=== PATIENT | male | born 1985 | race African-American/Black ===

== ENCOUNTER 2019-04-04 09:52 | Emergency (ER) | payer SELFPAY ==
[2019-04-04] MEDS ORDERED: Sodium Chloride 0.9% 1,000 ML IV ONE (10:01)
[2019-04-04] MEDS ORDERED: LORazepam 2 MG/ML SDV IVPUSH ONE (10:02)
--- NOTE | 2019-04-04 10:14 | EDM.PDOC ---
ED HPI GENERAL MEDICAL PROBLEM - General Chief Complaint: Neuro Symptoms/Deficits Stated Complaint: seizure Time Seen by Provider: 04/04/19 09:59 Source of Information: Reports: Patient, EMS History Limitations: Reports: No Limitations - History of Present Illness INITIAL COMMENTS - FREE TEXT/NARRATIVE: HISTORY AND PHYSICAL: History of present illness: Patient is a 33-year-old male who presents to the ED today via EMS with concern of seizure-like activity that occurred just prior to arrival to the ED. Per EMS report, patient was at work and was in a bobcat when the coworkers had noticed that the bobcat was shaking. Coworkers went to go check on him and saw that he was having shaking-like activity and seizure-like activity. Per coworkers this lasted 2 to 3 minutes and patient was incontinent of urine on scene. Upon arrival to the ED, patient is alert and states that he does not remember what had happened. Patient states he has never had seizure activity before. Patient denies fever, chills, chest pain, shortness of breath, or cough. Denies headache, neck stiff ness, change in vision, syncope, or near syncope. Denies nausea, vomiting, abdominal pain, diarrhea, constipation, or dysuria. Has not noted any blood in urine or stool. Patient has been eating and drinking appropriately. Review of systems: As per history of present illness and below otherwise all systems reviewed and negative. Past medical history: As per history of present illness and as reviewed below otherwise noncontributory. Surgical history: As per history of present illness and as reviewed below otherwise noncontributory. Social history: See social history for further information Family history: As per history of present illness and as reviewed below otherwise noncontributory. Physical exam: General: Patient is alert, oriented, and in no acute distress. Patient laying comfortably on exam table. HEENT: Atraumatic, normocephalic, pupils equal and reactive bilaterally, negative for conjunctival pallor or scleral icterus, mucous membranes moist, TMs normal bilaterally, throat clear, neck supple, nontender, trachea midline. No drooling or trismus noted. No meningeal signs. No hot potato voice noted. Tongue intact without bite collado. Lungs: Clear to auscultation, breath sounds equal bilaterally, chest nontender. Heart: S1S2, regular rate and rhythm without overt murmur Abdomen: Soft, nondistended, nontender. Negative for masses or hepatosplenomegaly. Negative for costovertebral tenderness. Pelvis: Stable nontender. Genitourinary: Deferred. Rectal: Deferred. Skin: Intact, warm, dry. No lesions or rashes noted. Extremities: Atraumatic, negative for cords or calf pain. Neurovascular unremarkable. Neuro: Awake, alert, oriented. Cranial nerves II through XII unremarkable. Cerebellum unremarkable. Motor and sensory unremarkable throughout. Exam nonfocal. Notes: Dr. Bain verbally involved in patient care. Discussed importance for follow-up with both a primary care provider as well as neurology. Patient has been referred to the neurology clinic. Voices understanding and is agreeable to plan of care. Denies any further questions or concerns at this time. Diagnostics: Head CT, CBC, CMP, UA, EKG, chest x-ray, prolactin, Trop, lipase, Mg Therapeutics: NS, Ativan 2mg Prescription: None Impression: Seizure like activity Plan: 1. No driving or operating heavy machinery until follow up with primary care provider or neurology. 2. Follow-up with both your primary care provider and neurologist as discussed. The number has been provided above for you to call and establish an appointment time. 3. You can alternate ibuprofen and Tylenol as directed for pain and discomfort. 4. Return to the ED as needed and as discussed. Definitive disposition and diagnosis as appropriate pending reevaluation and review of above. - Related Data Allergies Allergy/AdvReac Type Severity Reaction Status Date / Time No Known Allergies Allergy Verified 04/04/19 09:59 Home Meds: Home Meds . [No Known Home Meds] 11/23/14 [History] Past Medical History Other Gastrointestinal History: Constipation, recent Flu Symptoms Other Genitourinary History: Pt states he has only 1 kidney - Past Surgical History Other Female Surgeries/Procedures: Right Nephrectomy for "Kidney Failure" Social & Family History - Family History Family Medical History: Noncontributory - Tobacco Use Smoking Status *Q: Unknown Ever Smoked - Recreational Drug Use Recreational Drug Use: No ED ROS GENERAL - Review of Systems Review Of Systems: Comprehensive ROS is negative, except as noted in HPI. ED EXAM, GENERAL - Physical Exam Exam: See Below (see dictation) Course - Vital Signs Last Recorded V/S: Last Vital Signs Temp 97.5 F 04/04/19 09:59 Pulse 100 04/04/19 09:59 Resp 16 04/04/19 09:59 BP 135/87 04/04/19 09:59 Pulse Ox 92 L 04/04/19 09:59 - Orders/Labs/Meds Orders: Active Orders 24 hr Category Date Time Status EKG Documentation Completion [RC] STAT Care 04/04/19 10:02 Active UA RFX MILTON AND CULT IF INDIC [URIN] Stat Lab 04/04/19 10:01 Ordered Labs: Laboratory Tests 04/04/19 04/04/19 04/04/19 Range/Units 10:10 10:10 10:10 WBC 5.13 (4.0-11.0) K/uL RBC 4.49 L (4.50-5.90) M/uL Hgb 13.7 (13.0-17.0) g/dL Hct 41.5 (38.0-50.0) % MCV 92.4 (80.0-98.0) fL MCH 30.5 (27.0-32.0) pg MCHC 33.0 (31.0-37.0) g/dL RDW Std Deviation 40.6 (28.0-62.0) fl RDW Coeff of Thomas 12 (11.0-15.0) % Plt Count 175 (150-400) K/uL MPV 11.70 (7.40-12.00) fL Neut % (Auto) 46.9 L (48.0-80.0) % Lymph % (Auto) 38.0 (16.0-40.0) % [place] % (Auto) 9.4 (0.0-15.0) % Eos % (Auto) 5.5 (0.0-7.0) % Baso % (Auto) 0.2 (0.0-1.5) % Neut # (Auto) 2.4 (1.4-5.7) K/uL Lymph # (Auto) 2.0 (0.6-2.4) K/uL [place] # (Auto) 0.5 (0.0-0.8) K/uL Eos # (Auto) 0.3 (0.0-0.7) K/uL Baso # (Auto) 0.0 (0.0-0.1) K/uL Nucleated RBC % 0.0 /100WBC Nucleated RBCs # 0 K/uL Sodium 138 (136-148) mmol/L Potassium 4.1 (3.5-5.1) mmol/L Chloride 102 (98-107) mmol/L Carbon Dioxide 23.2 (21.0-32.0) mmol/L BUN 18 (7.0-18.0) mg/dL Creatinine 1.4 H (0.8-1.3) mg/dL Est Cr Clr Drug Dosing 81.85 mL/min Estimated GFR (MDRD) > 60.0 ml/min Glucose 113 H (74-106) mg/dL Calcium 8.7 (8.5-10.1) mg/dL Magnesium 2.0 (1.8-2.4) mg/dL Total Bilirubin 0.6 (0.2-1.0) mg/dL AST 21 (15-37) IU/L ALT 37 (14-63) IU/L Alkaline Phosphatase 70 (46-116) U/L Troponin I < 0.050 (0.000-0.056) ng/mL Total Protein 7.5 (6.4-8.2) g/dL Albumin 3.8 (3.4-5.0) g/dL Globulin 3.7 (2.6-4.0) g/dL Albumin/Globulin Ratio 1.0 (0.9-1.6) Lipase 111 (73-393) U/L Prolactin 22.0 ng/mL Meds: Medications Discontinued Medications Generic Name Dose Route Start Last Admin Trade Name Freq PRN Reason Stop Dose Admin Sodium Chloride 1,000 mls @ 999 mls/hr 04/04/19 10:01 04/04/19 10:28 Normal Saline IV 04/04/19 11:01 999 mls/hr BOLUS ONE Administration Lorazepam 2 mg 04/04/19 10:02 04/04/19 10:29 Ativan IVPUSH 04/04/19 10:03 2 mg ONETIME ONE Administration Departure - Departure Time of Disposition: 12:15 Disposition: Home, Self-Care 01 Clinical Impression: Seizure-like activity - Discharge Information Referrals: PCP,None [Primary Care Provider] - Forms: ED Department Discharge Additional Instructions: The following information is given to patients seen in the emergency department who are being discharged to home. This information is to outline your options for follow-up care. We provide all patients seen in our emergency department with a follow-up referral. The need for follow-up, as well as the timing and circumstances, are variable depending upon the specifics of your emergency department visit. If you don't have a primary care physician on staff, we will provide you with a referral. We always advise you to contact your personal physician following an emergency department visit to inform them of the circumstance of the visit and for follow-up with them and/or the need for any referrals to a consulting specialist. The emergency department will also refer you to a specialist when appropriate. This referral assures that you have the opportunity for follow-up care with a specialist. All of these measure are taken in an effort to provide you with optimal care, which includes your follow-up. Under all circumstances we always encourage you to contact your private physician who remains a resource for coordinating your care. When calling for follow-up care, please make the office aware that this follow-up is from your recent emergency room visit. If for any reason you are refused follow-up, please contact the [facility] Emergency Department at and asked to speak to the emergency department charge nurse. [facility] [address] [place], [place] [id number] [address] [address] [facility] - Neurology Professional Building [address] [place] [address], [address] [place] [address] 1. No driving or operating heavy machinery until follow up with primary care provider or neurology. 2. Follow-up with both your primary care provider and neurologist as discussed. The number has been provided above for you to call and establish an appointment time. 3. You can alternate ibuprofen and Tylenol as directed for pain and discomfort. 4. Return to the ED as needed and as discussed. Sepsis Event Note - Evaluation Sepsis Screening Result: No Definite Risk - Focused Exam Vital Signs: Vital Signs Temp Pulse Resp BP Pulse Ox 04/04/19 09:59 97.5 F 100 16 135/87 92 L Date Exam was Performed: 04/04/19 Time Exam was Performed: 12:13 - My Orders Last 24 Hours: My Active Orders 04/04/19 10:01 UA RFX MILTON AND CULT IF INDIC [URIN] Stat 04/04/19 10:02 EKG Documentation Completion [RC] STAT - Assessment/Plan Last 24 Hours: My Active Orders 04/04/19 10:01 UA RFX MILTON AND CULT IF INDIC [URIN] Stat 04/04/19 10:02 EKG Documentation Completion [RC] STAT
--- NOTE | 2019-04-04 10:46 | CR ---
Chest: AP view of the chest was obtained. Comparison: No prior chest x-ray. Heart size and mediastinum are normal. Lungs are clear. Bony structures are unremarkable. Impression: 1. Nothing acute is appreciated on AP view of the chest x-ray. Diagnostic code #1 This report was dictated in [place] Standard Time
--- NOTE | 2019-04-04 10:52 | CT ---
Head CT Technique: Multiple axial sections through the brain were obtained. Intravenous contrast was not utilized. Comparison: Prior head CT study of 02/01/12 is available. Findings: Ventricles are dilated. These findings are stable from previous head CT exam. No worsening is appreciated. 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 This also appears stable. No abnormal parenchymal densities are seen. No evidence of intracranial hemorrhage. No midline shift or mass effect is seen. Bone window settings were reviewed which shows no acute calvarial abnormality. Mastoid sinuses show nothing acute. Visualized paranasal sinuses also show nothing acute. Impression: 1. Stable findings as described above. 2. Nothing acute is appreciated on noncontrast head CT exam. Diagnostic code #2 This report was dictated in [place] Standard Time
[2019-04-04 10:53] LABS: BLOOD UREA NITROGEN,BUN 18 mg/dL (7.0-18.0); CARBON DIOXIDE,CO2 23.2 mmol/L (21.0-32.0); CHLORIDE,CL 102 mmol/L (98-107); GLUCOSE RANDOM 113 mg/dL (74-106); LIPASE 111 U/L (73-393); POTASSIUM,K 4.1 mmol/L (3.5-5.1); SODIUM,NA 138 mmol/L (136-148)
[2019-04-04 13:45] VITALS: BP 133/81; PULSE 58
== END 2019-04-04 13:45 | disposition home or self-care (01) ==
LOC: MW.ED 09:52
DX: R25.9 Unspecified abnormal involuntary movements (principal)
CPT/HCPCS: 36415; 70450; 71045; 80053; 81003; 83690; 83735; 84146; 84484; 85025; 93005; 96361; 96374; 99285; J2060; J7030; 99284

== ENCOUNTER 2019-12-05 11:51 | Emergency (ER) | payer BC ==
[2019-12-05] MEDS ORDERED: Sodium Chloride 0.9% 2.5 ML Syringe FLUSH PRN (12:19)
[2019-12-05] MEDS ORDERED: Sodium Chloride 0.9% 10 ML Syringe FLUSH PRN (12:19)
[2019-12-05] MEDS ORDERED: LORazepam 2 MG/ML SDV ONE (12:35)
--- NOTE | 2019-12-05 12:44 | EDM.PDOC ---
ED HPI GENERAL MEDICAL PROBLEM - General Chief Complaint: Neuro Symptoms/Deficits Stated Complaint: seizure Time Seen by Provider: 12/05/19 12:06 Source of Information: Reports: Patient History Limitations: Reports: No Limitations - History of Present Illness INITIAL COMMENTS - FREE TEXT/NARRATIVE: 34-year-old male with history of seizure disorder presents with seizure episode today at work. He is supposedly compliant with his antiepileptics. Patient denies fever, chills, headache, chest pain, shortness of breath, abdominal pain, focal numbness or weakness. ROS: A 10-point review of systems, other than pertinent positives and negatives as stated per HPI, is otherwise negative Past medical history: No additional pertinent history Past Surgical history: No additional pertinent history Social history: No additional pertinent history Family history: No additional pertinent history PHYSICAL EXAM General: AOx4, GCS = 15, No distress HEENT: dry mucous membrane Neck: supple, no meningismus, no Kernig or Brudzinski Cardiac: S1S2 RRR Respiratory: CTAB, no crackles or rales, no wheezing Abdomen: Soft, nontender, no rebound or guarding, nondistended, no pulsatile mass. Back: nontender Musculoskeletal: NVI distally, no deformity Neuro: No focal deficits - Related Data Allergies Allergy/AdvReac Type Severity Reaction Status Date / Time No Known Allergies Allergy Verified 12/05/19 11:56 Home Meds: Home Meds . [No Known Home Meds] 11/23/14 [History] Past Medical History Other Gastrointestinal History: Constipation, recent Flu Symptoms Other Genitourinary History: Pt states he has only 1 kidney Neurological History: Reports: Seizure - Past Surgical History Male Surgical History: Reports: Nephrectomy Social & Family History - Family History Family Medical History: Noncontributory - Tobacco Use Smoking Status *Q: Never Smoker - Recreational Drug Use Recreational Drug Use: No ED ROS GENERAL - Review of Systems Review Of Systems: See Below (see dictation) - Physical Exam Exam: See Below Course - Vital Signs Last Recorded V/S: Last Vital Signs Temp 96.7 F L 12/05/19 11:52 Pulse 89 12/05/19 13:28 Resp 16 12/05/19 13:28 BP 112/48 L 12/05/19 13:28 Pulse Ox 98 12/05/19 13:28 - Orders/Labs/Meds Orders: Active Orders 24 hr Category Date Time Status Cardiac Monitoring [RC] . DIRECTED Care 12/05/19 12:19 Active Pulse Oximetry [RC] ASDIRECTED Care 12/05/19 12:19 Active DRUG SCREEN, URINE [URCHEM] Stat Lab 12/05/19 12:19 Ordered Sodium Chloride 0.9% [Saline Flush] Med 12/05/19 12:19 Active 10 ml FLUSH ASDIRECTED PRN Sodium Chloride 0.9% [Saline Flush] Med 12/05/19 12:19 Active 2.5 ml FLUSH ASDIRECTED PRN Saline Lock Insert [OM.PC] Stat Oth 12/05/19 12:19 Ordered Medication Orders Sodium Chloride (Saline Flush) 10 ml FLUSH ASDIRECTED PRN PRN Reason: Keep Vein Open Last Admin: 12/05/19 12:49 Dose: 10 ml Documented by: [id number] Sodium Chloride (Saline Flush) 2.5 ml FLUSH ASDIRECTED PRN PRN Reason: Keep Vein Open Last Admin: 12/05/19 12:50 Dose: 2.5 ml Documented by: [id number] Labs: Laboratory Tests 12/05/19 12/05/19 12/05/19 Range/Units 12:40 12:40 12:40 WBC 8.60 (4.0-11.0) K/uL RBC 4.51 (4.50-5.90) M/uL Hgb 13.5 (13.0-17.0) g/dL Hct 42.0 (38.0-50.0) % MCV 93.1 (80.0-98.0) fL MCH 29.9 (27.0-32.0) pg MCHC 32.1 (31.0-37.0) g/dL RDW Std Deviation 39.5 (28.0-62.0) fl RDW Coeff of Thomas 12 (11.0-15.0) % Plt Count 200 (150-400) K/uL MPV 11.40 (7.40-12.00) fL Neut % (Auto) 45.5 L (48.0-80.0) % Lymph % (Auto) 40.0 (16.0-40.0) % [place] % (Auto) 10.0 (0.0-15.0) % Eos % (Auto) 4.3 (0.0-7.0) % Baso % (Auto) 0.2 (0.0-1.5) % Neut # (Auto) 3.9 (1.4-5.7) K/uL Lymph # (Auto) 3.4 H (0.6-2.4) K/uL [place] # (Auto) 0.9 H (0.0-0.8) K/uL Eos # (Auto) 0.4 (0.0-0.7) K/uL Baso # (Auto) 0.0 (0.0-0.1) K/uL Nucleated RBC % 0.0 /100WBC Nucleated RBCs # 0 K/uL INR 1.09 Sodium 138 (136-148) mmol/L Potassium 3.0 L (3.5-5.1) mmol/L Chloride 99 (98-107) mmol/L Carbon Dioxide 20.0 L (21.0-32.0) mmol/L BUN 11 (7.0-18.0) mg/dL Creatinine 1.4 H (0.8-1.3) mg/dL Est Cr Clr Drug Dosing 81.60 mL/min Estimated GFR (MDRD) 58.0 ml/min Glucose 110 H (74-106) mg/dL Calcium 9.1 (8.5-10.1) mg/dL Phosphorus 3.5 (2.6-4.7) mg/dL Magnesium 1.8 (1.8-2.4) mg/dL Total Bilirubin 0.5 (0.2-1.0) mg/dL AST 25 (15-37) IU/L ALT 32 (14-63) IU/L Alkaline Phosphatase 81 (46-116) U/L C-Reactive Protein <0.20 (0.00-0.90) mg/dL Total Protein 8.0 (6.4-8.2) g/dL Albumin 4.2 (3.4-5.0) g/dL Globulin 3.8 (2.6-4.0) g/dL Albumin/Globulin Ratio 1.1 (0.9-1.6) Ethyl Alcohol < 3.0 mg/dL Meds: Medications Generic Name Dose Route Start Last Admin Trade Name Freq PRN Reason Stop Dose Admin Sodium Chloride 10 ml 12/05/19 12:19 12/05/19 12:49 Saline Flush FLUSH 10 ml ASDIRECTED PRN Administration Keep Vein Open Sodium Chloride 2.5 ml 12/05/19 12:19 12/05/19 12:50 Saline Flush FLUSH 2.5 ml ASDIRECTED PRN Administration Keep Vein Open Discontinued Medications Generic Name Dose Route Start Last Admin Trade Name Freq PRN Reason Stop Dose Admin Levetiracetam 3,000 mg/ 130 mls @ 460 mls/hr 12/05/19 12:39 12/05/19 13:28 Dextrose/Water IV 12/05/19 12:55 460 mls/hr Q12H STA Administration Lorazepam Confirm 12/05/19 12:35 12/05/19 12:49 Ativan Administered 12/05/19 12:36 Not Given Dose 2 mg .ROUTE .STK-MED ONE Lorazepam 2 mg 12/05/19 12:46 12/05/19 12:37 Ativan IVPUSH 12/05/19 12:47 2 mg ONETIME ONE Administration Potassium Chloride 40 meq 12/05/19 14:00 12/05/19 14:44 Klor-Con M20 PO 12/05/19 14:01 40 meq ONETIME ONE Administration - Re-Assessments/Exams Free Text/Narrative Re-Assessment/Exam: 12/05/19 12:42 Patient is actively seizing, abated with 2 mg IV Ativan. Will start IV Keppra 3 gm 12/05/19 14:57 Patient is alert and oriented now, no longer postictal. 12/05/19 15:20 After IV Keppra and prolonged observation in the ER, the patient improved and is currently stable for discharge. He has not had recurrent episodes of seizure. I performed a repeat exam and did not appreciate new abnormal findings. Patient exhibits normal vital signs and has a normal gait on road test. I advised the patient to return to the ER for reevaluation if symptoms worsened, including fever, worsening pain, or any other worrisome symptoms. I instructed the patient to follow up with neurology within 2-3 days. I instructed him to continue taking his seizure medication. MEDICAL DECISION MAKING: I reviewed the patients past medical records, lab and radiographic findings. I discussed the case with the patient. My differential diagnosis included: Electrolyte abnormality, hypoglycemia, seizure activity, subtherapeutic antiepileptic. Blood work did not demonstrate hyperglycemia or signs of infection, I do not suspect [employer] infectious etiology, including encephalitis or meningitis. Patient's potassium was 3.0, repleted with p.o. potassium. He was not tachycardic or tremulous, despite his alcohol level being undetectable, I do not suspect alcohol withdrawal seizure. Patient is compliant taking his at home seizure medications, he had one episode of transient seizure activity abated with 2 mg IV Ativan in the ER, he was given 3 g IV Keppra in the ER for loading. After observation, has not had recurrent seizures, no focal deficit on my repeat exam, normal gait on repeat exam. I suspect he is stable for outpatient follow-up with neurology for further medication adjustment. Departure - Departure Time of Disposition: 14:58 Disposition: Home, Self-Care 01 Condition: Good Clinical Impression: Seizure - Discharge Information *PRESCRIPTION DRUG MONITORING PROGRAM REVIEWED*: Not Applicable *COPY OF PRESCRIPTION DRUG MONITORING REPORT IN PATIENT SHAILESH: Not Applicable Instructions: Seizure, Adult, [id number] Referrals: PCP,None [Primary Care Provider] - Forms: ED Department Discharge Additional Instructions: The need for follow-up, as well as the timing and circumstances, are variable depending upon the specifics of your emergency department visit. If you don't have a primary care physician on staff, we will provide you with a referral. We always advise you to contact your personal physician following an emergency department visit to inform them of the circumstance of the visit and f or follow-up with them and/or the need for any referrals to a consulting specialist. The emergency department will also refer you to a specialist when appropriate. This referral assures that you have the opportunity for follow-up care with a specialist. All of these measure are taken in an effort to provide you with optimal care, which includes your follow-up. Under all circumstances we always encourage you to contact your private physician who remains a resource for coordinating your care. When calling for follow-up care, please make the office aware that this follow-up is from your recent emergency room visit. If for any reason you are refused follow-up, please contact the [facility] Emergency Department at and asked to speak to the emergency department charge nurse. If you do not have a primary care doctor, please follow up with the clinics below within 3-5 days. Neurology [facility] - Neurology Professional Building [address] [place] [address], [address] [place] [address] Sepsis Event Note (ED) - Evaluation Sepsis Screening Result: No Definite Risk - Focused Exam Vital Signs: Vital Signs Temp Pulse Resp BP Pulse Ox 12/05/19 13:28 89 16 112/48 L 98 12/05/19 12:47 117 H 16 122/55 L 98 12/05/19 11:52 96.7 F L 97 16 139/83 98 - My Orders Last 24 Hours: My Active Orders 12/05/19 12:19 Cardiac Monitoring [RC] . DIRECTED Pulse Oximetry [RC] ASDIRECTED DRUG SCREEN, URINE [URCHEM] Stat Sodium Chloride 0.9% [Saline Flush] 10 ml FLUSH ASDIRECTED PRN Sodium Chloride 0.9% [Saline Flush] 2.5 ml FLUSH ASDIRECTED PRN Saline Lock Insert [OM.PC] Stat - Assessment/Plan Last 24 Hours: My Active Orders 12/05/19 12:19 Cardiac Monitoring [RC] . DIRECTED Pulse Oximetry [RC] ASDIRECTED DRUG SCREEN, URINE [URCHEM] Stat Sodium Chloride 0.9% [Saline Flush] 10 ml FLUSH ASDIRECTED PRN Sodium Chloride 0.9% [Saline Flush] 2.5 ml FLUSH ASDIRECTED PRN Saline Lock Insert [OM.PC] Stat
[2019-12-05] MEDS ORDERED: LORazepam 2 MG/ML SDV IVPUSH ONE (12:46)
[2019-12-05 13:20] LABS: BLOOD UREA NITROGEN,BUN 11 mg/dL (7.0-18.0); CHLORIDE,CL 99 mmol/L (98-107); GLUCOSE RANDOM 110 mg/dL (74-106); SODIUM,NA 138 mmol/L (136-148)
[2019-12-05] MEDS ORDERED: Potassium Chloride 20 MEQ Tab.ER PO ONE (14:00)
[2019-12-05 15:24] VITALS: BP 138/77; PULSE 77
== END 2019-12-05 15:25 | disposition home or self-care (01) ==
LOC: MW.ED 11:51
DX: G40.909 Epilepsy, unspecified, not intractable, without status epilepticus (principal)
CPT/HCPCS: 36415; 80053; 80307; 83735; 84100; 85025; 85610; 86140; 96365; 96375; 99284; A9270; J1953; J2060; J7060; 99283

== ENCOUNTER 2020-02-29 09:43 | Emergency (ER) | payer BC ==
[2020-02-29] MEDS ORDERED: Sodium Chloride 0.9% 10 ML Syringe FLUSH PRN (09:56)
[2020-02-29] MEDS ORDERED: Sodium Chloride 0.9% 1,000 ML IV ONE (09:56)
[2020-02-29] MEDS ORDERED: Sodium Chloride 0.9% 2.5 ML Syringe FLUSH PRN (09:56)
--- NOTE | 2020-02-29 10:00 | EDM.PDOC ---
ED HPI GENERAL MEDICAL PROBLEM - General Chief Complaint: Neurological Problem Stated Complaint: EMS ARRIVAL Time Seen by Provider: 02/29/20 09:50 Source of Information: Reports: Patient History Limitations: Reports: No Limitations - History of Present Illness INITIAL COMMENTS - FREE TEXT/NARRATIVE: Is a 34-year-old male with a history of seizures who presents today for seizures about 2 hours ago. Patient is unsure how long the seizure lasted but states he only had 1 today. Patient states last time he had a seizure was about 3 months ago. Patient states he ran of his medication has not had any of his pills in the past week. Patient denies any head injuries or other injuries from the seizure. Patient denies any fever chills nausea vomiting drug or alcohol use. - Related Data Allergies Allergy/AdvReac Type Severity Reaction Status Date / Time No Known Allergies Allergy Verified 12/05/19 11:56 Home Meds: Home Meds levETIRAcetam [Keppra] 750 mg PO BID #60 tablet 02/29/20 [Rx] Past Medical History Other Gastrointestinal History: Constipation, recent Flu Symptoms Other Genitourinary History: Pt states he has only 1 kidney Neurological History: Reports: Seizure - Past Surgical History Male Surgical History: Reports: Nephrectomy Social & Family History - Family History Family Medical History: No Pertinent Family History ED ROS GENERAL - Review of Systems Review Of Systems: See Below Constitutional: Reports: No Symptoms HEENT: Reports: No Symptoms Respiratory: Reports: No Symptoms Cardiovascular: Reports: No Symptoms Endocrine: Reports: No Symptoms GI/Abdominal: Reports: No Symptoms : Reports: No Symptoms Musculoskeletal: Reports: No Symptoms Skin: Reports: No Symptoms Neurological: Reports: Seizure Psychiatric: Reports: No Symptoms Hematologic/Lymphatic: Reports: No Symptoms Immunologic: Reports: No Symptoms ED EXAM, NEURO - Physical Exam Exam: See Below Exam Limited By: No Limitations General Appearance: Alert, WD/WN, No Apparent Distress Eye Exam: Bilateral Eye: EOMI, PERRL Ears: Normal External Exam Head Exam: Atraumatic Neck: Normal Inspection, Supple, Non-Tender Respiratory/Chest: No Respiratory Distress, Lungs Clear, Normal Breath Sounds Cardiovascular: Normal Peripheral Pulses, Regular Rate, Rhythm GI/Abdominal: Normal Bowel Sounds, Soft, Non-Tender Neurological: Alert, Normal Mood/Affect, CN II-XII Intact, Normal Gait, Oriented x 3 Extremities: Normal Range of Motion #1 Interpretation EKG Date: 02/29/20 Time: 09:45 Rhythm: NSR Rate (Beats/Min): 95 ST-T: Normal Course - Vital Signs Last Recorded V/S: Last Vital Signs Temp 98.2 F 02/29/20 09:50 Pulse 87 02/29/20 10:30 Resp 16 02/29/20 10:30 BP 124/73 02/29/20 10:30 Pulse Ox 100 02/29/20 10:30 - Orders/Labs/Meds Orders: Active Orders 24 hr Category Date Time Status LACTIC ACID,WHOLE BLOOD [BG] Stat Lab 02/29/20 12:01 Ordered Sodium Chloride 0.9% [Saline Flush] Med 02/29/20 09:56 Active 10 ml FLUSH ASDIRECTED PRN Sodium Chloride 0.9% [Saline Flush] Med 02/29/20 09:56 Active 2.5 ml FLUSH ASDIRECTED PRN Saline Lock Insert [OM.PC] Stat Oth 02/29/20 09:56 Ordered Medication Orders Sodium Chloride (Saline Flush) 10 ml FLUSH ASDIRECTED PRN PRN Reason: Keep Vein Open Last Admin: 02/29/20 10:11 Dose: 10 ml Documented by: LISA Sodium Chloride (Saline Flush) 2.5 ml FLUSH ASDIRECTED PRN PRN Reason: Keep Vein Open Last Admin: 02/29/20 10:11 Dose: 2.5 ml Documented by: LISA Labs: Laboratory Tests 02/29/20 02/29/20 02/29/20 Range/Units 09:45 09:45 09:45 WBC 4.94 (4.0-11.0) K/uL RBC 4.45 L (4.50-5.90) M/uL Hgb 13.2 (13.0-17.0) g/dL Hct 41.3 (38.0-50.0) % MCV 92.8 (80.0-98.0) fL MCH 29.7 (27.0-32.0) pg MCHC 32.0 (31.0-37.0) g/dL RDW Std Deviation 39.8 (28.0-62.0) fl RDW Coeff of Thomas 12 (11.0-15.0) % Plt Count 198 (150-400) K/uL MPV 11.60 (7.40-12.00) fL Neut % (Auto) 40.6 L (48.0-80.0) % Lymph % (Auto) 44.3 H (16.0-40.0) % Power % (Auto) 11.1 (0.0-15.0) % Eos % (Auto) 3.6 (0.0-7.0) % Baso % (Auto) 0.4 (0.0-1.5) % Neut # (Auto) 2.0 (1.4-5.7) K/uL Lymph # (Auto) 2.2 (0.6-2.4) K/uL Power # (Auto) 0.6 (0.0-0.8) K/uL Eos # (Auto) 0.2 (0.0-0.7) K/uL Baso # (Auto) 0.0 (0.0-0.1) K/uL Nucleated RBC % 0.0 /100WBC Nucleated RBCs # 0 K/uL Lactate 4.8 H* (0.20-2.00) mmol/L Sodium 137 (136-148) mmol/L Potassium 4.0 (3.5-5.1) mmol/L Chloride 100 (98-107) mmol/L Carbon Dioxide 24.3 (21.0-32.0) mmol/L BUN 17 (7.0-18.0) mg/dL Creatinine 1.5 H (0.8-1.3) mg/dL Est Cr Clr Drug Dosing TNP Estimated GFR (MDRD) 53.6 ml/min Glucose 102 (74-106) mg/dL Calcium 8.9 (8.5-10.1) mg/dL Phosphorus 3.4 (2.6-4.7) mg/dL Magnesium 1.8 (1.8-2.4) mg/dL Total Bilirubin 0.6 (0.2-1.0) mg/dL AST 27 (15-37) IU/L ALT 36 (14-63) IU/L Alkaline Phosphatase 69 (46-116) U/L Total Protein 7.6 (6.4-8.2) g/dL Albumin 3.8 (3.4-5.0) g/dL Globulin 3.8 (2.6-4.0) g/dL Albumin/Globulin Ratio 1.0 (0.9-1.6) Urine Color Urine Appearance Urine pH (5.0-8.0) Ur Specific [place] (1.001-1.035) Urine Protein (NEGATIVE) mg/dL Urine Glucose (UA) (NEGATIVE) mg/dL Urine Ketones (NEGATIVE) mg/dL Urine Occult Blood (NEGATIVE) Urine Nitrite (NEGATIVE) Urine Bilirubin (NEGATIVE) Urine Urobilinogen (<2.0) EU/dL Ur Leukocyte Esterase (NEGATIVE) Urine Opiates Screen (NEGATIVE) Ur Oxycodone Screen (NEGATIVE) Urine Methadone Screen (NEGATIVE) Ur Barbiturates Screen (NEGATIVE) Ur Phencyclidine Scrn (NEGATIVE) Ur Amphetamine Screen (NEGATIVE) U Methamphetamines Scrn (NEGATIVE) U Benzodiazepines Scrn (NEGATIVE) U Cocaine Metab Screen (NEGATIVE) U Marijuana (THC) Screen (NEGATIVE) Ethyl Alcohol < 3.0 mg/dL 02/29/20 02/29/20 Range/Units 10:04 10:04 WBC (4.0-11.0) K/uL RBC (4.50-5.90) M/uL Hgb (13.0-17.0) g/dL Hct (38.0-50.0) % MCV (80.0-98.0) fL MCH (27.0-32.0) pg MCHC (31.0-37.0) g/dL RDW Std Deviation (28.0-62.0) fl RDW Coeff of Thomas (11.0-15.0) % Plt Count (150-400) K/uL MPV (7.40-12.00) fL Neut % (Auto) (48.0-80.0) % Lymph % (Auto) (16.0-40.0) % Power % (Auto) (0.0-15.0) % Eos % (Auto) (0.0-7.0) % Baso % (Auto) (0.0-1.5) % Neut # (Auto) (1.4-5.7) K/uL Lymph # (Auto) (0.6-2.4) K/uL Power # (Auto) (0.0-0.8) K/uL Eos # (Auto) (0.0-0.7) K/uL Baso # (Auto) (0.0-0.1) K/uL Nucleated RBC % /100WBC Nucleated RBCs # K/uL Lactate (0.20-2.00) mmol/L Sodium (136-148) mmol/L Potassium (3.5-5.1) mmol/L Chloride (98-107) mmol/L Carbon Dioxide (21.0-32.0) mmol/L BUN (7.0-18.0) mg/dL Creatinine (0.8-1.3) mg/dL Est Cr Clr Drug Dosing Estimated GFR (MDRD) ml/min Glucose (74-106) mg/dL Calcium (8.5-10.1) mg/dL Phosphorus (2.6-4.7) mg/dL Magnesium (1.8-2.4) mg/dL Total Bilirubin (0.2-1.0) mg/dL AST (15-37) IU/L ALT (14-63) IU/L Alkaline Phosphatase (46-116) U/L Total Protein (6.4-8.2) g/dL Albumin (3.4-5.0) g/dL Globulin (2.6-4.0) g/dL Albumin/Globulin Ratio (0.9-1.6) Urine Color YELLOW Urine Appearance CLEAR Urine pH 6.0 (5.0-8.0) Ur Specific [place] 1.010 (1.001-1.035) Urine Protein NEGATIVE (NEGATIVE) mg/dL Urine Glucose (UA) NEGATIVE (NEGATIVE) mg/dL Urine Ketones NEGATIVE (NEGATIVE) mg/dL Urine Occult Blood NEGATIVE (NEGATIVE) Urine Nitrite NEGATIVE (NEGATIVE) Urine Bilirubin NEGATIVE (NEGATIVE) Urine Urobilinogen 0.2 (<2.0) EU/dL Ur Leukocyte Esterase NEGATIVE (NEGATIVE) Urine Opiates Screen NEGATIVE (NEGATIVE) Ur Oxycodone Screen NEGATIVE (NEGATIVE) Urine Methadone Screen NEGATIVE (NEGATIVE) Ur Barbiturates Screen NEGATIVE (NEGATIVE) Ur Phencyclidine Scrn NEGATIVE (NEGATIVE) Ur Amphetamine Screen NEGATIVE (NEGATIVE) U Methamphetamines Scrn NEGATIVE (NEGATIVE) U Benzodiazepines Scrn NEGATIVE (NEGATIVE) U Cocaine Metab Screen NEGATIVE (NEGATIVE) U Marijuana (THC) Screen NEGATIVE (NEGATIVE) Ethyl Alcohol mg/dL Meds: Medications Generic Name Dose Route Start Last Admin Trade Name Freq PRN Reason Stop Dose Admin Sodium Chloride 10 ml 02/29/20 09:56 02/29/20 10:11 Saline Flush FLUSH 10 ml ASDIRECTED PRN Administration Keep Vein Open Sodium Chloride 2.5 ml 02/29/20 09:56 02/29/20 10:11 Saline Flush FLUSH 2.5 ml ASDIRECTED PRN Administration Keep Vein Open Discontinued Medications Generic Name Dose Route Start Last Admin Trade Name Luis PRN Reason Stop Dose Admin Acetaminophen 1,000 mg 02/29/20 10:55 02/29/20 11:00 Tylenol Extra Strength PO 02/29/20 10:56 1,000 mg ONETIME ONE Administration Sodium Chloride 1,000 mls @ 999 mls/hr 02/29/20 09:56 02/29/20 10:11 Normal Saline IV 02/29/20 10:56 999 mls/hr .BOLUS ONE Administration Levetiracetam 1,500 mg 02/29/20 11:15 02/29/20 11:35 Keppra PO 02/29/20 11:16 1,500 mg NOW ONE Administration - Re-Assessments/Exams Free Text/Narrative Re-Assessment/Exam: 02/29/20 12:10 Patient medication list was faxed over from pharmacy shows that he takes Keppra 750 mg twice daily. It also showed the patient picked up the prescription on February 20 have patient states not sure he does not have any medications at home. We will still prescribe patient a months worth of his Keppra and he can see his neurologist. Patient breakthrough seizure likely due to noncompliance of medication. Patient did have elevated lactate likely due to the seizure earlier was given a liter of fluids recheck. Patient stable for discharge home. Departure - Departure Time of Disposition: 12:10 Disposition: Home, Self-Care 01 Condition: Good Clinical Impression: Breakthrough seizure - Discharge Information *PRESCRIPTION DRUG MONITORING PROGRAM REVIEWED*: Not Applicable *COPY OF PRESCRIPTION DRUG MONITORING REPORT IN PATIENT SHAILESH: Not Applicable Prescriptions: levETIRAcetam [Keppra] 750 mg PO BID #60 tablet Referrals: PCP,None [Primary Care Provider] - Forms: ED Department Discharge Additional Instructions: The following information is given to patients seen in the emergency department who are being discharged to home. This information is to outline your options for follow-up care. We provide all patients seen in our emergency department with a follow-up referral. The need for follow-up, as well as the timing and circumstances, are variable depending upon the specifics of your emergency department visit. If you don't have a primary care physician on staff, we will provide you with a referral. We always advise you to contact your personal physician following an emergency department visit to inform them of the circumstance of the visit and for follow-up with them and/or the need for any referrals to a consulting specialist. The emergency department will also refer you to a specialist when appropriate. This referral assures that you have the opportunity for follow-up care with a specialist. All of these measure are taken in an effort to provide you with optimal care, which includes your follow-up. Under all circumstances we always encourage you to contact your private physician who remains a resource for coordinating your care. When calling for follow-up care, please make the office aware that this follow-up is from your recent emergency room visit. If for any reason you are refused follow-up, please contact the [facility] Emergency Department at and asked to speak to the emergency department charge nurse. Please follow up with your primary care physician. If you do not have a primary care physician, see below: [facility] [address] [place] [id number] My [facility] [address] [place] [phone] Please follow-up with neurologist for further care. If you continue to have seizures or other symptoms please return to the emergency department. Sepsis Event Note (ED) - Focused Exam Vital Signs: Vital Signs Temp Pulse Resp BP Pulse Ox 02/29/20 10:30 87 16 124/73 100 02/29/20 10:00 88 16 116/69 98 02/29/20 09:50 98.2 F 96 17 122/72 96 - My Orders Last 24 Hours: My Active Orders 02/29/20 09:56 Sodium Chloride 0.9% [Saline Flush] 10 ml FLUSH ASDIRECTED PRN Sodium Chloride 0.9% [Saline Flush] 2.5 ml FLUSH ASDIRECTED PRN Saline Lock Insert [OM.PC] Stat 02/29/20 12:01 LACTIC ACID,WHOLE BLOOD [BG] Stat - Assessment/Plan Last 24 Hours: My Active Orders 02/29/20 09:56 Sodium Chloride 0.9% [Saline Flush] 10 ml FLUSH ASDIRECTED PRN Sodium Chloride 0.9% [Saline Flush] 2.5 ml FLUSH ASDIRECTED PRN Saline Lock Insert [OM.PC] Stat 02/29/20 12:01 LACTIC ACID,WHOLE BLOOD [BG] Stat Assessment:: Patient is a 34-year-old male who presents today for seizure. Patient has not had his medication in the past week. Likely source of seizures noncompliant with medication. Will rule any infections and reassess. Patient is unsure of his medication list will call pharmacy to get complete list of meds.
[2020-02-29 10:37] LABS: BLOOD UREA NITROGEN,BUN 17 mg/dL (7.0-18.0); CARBON DIOXIDE,CO2 24.3 mmol/L (21.0-32.0); CHLORIDE,CL 100 mmol/L (98-107); GLUCOSE RANDOM 102 mg/dL (74-106); SODIUM,NA 137 mmol/L (136-148)
[2020-02-29] MEDS ORDERED: Acetaminophen 500 MG Tab PO ONE (10:55)
[2020-02-29] MEDS ORDERED: levETIRAcetam Soln 500 MG/5 ML Cup PO ONE (11:15)
[2020-02-29 12:58] VITALS: BP 121/71; PULSE 69
== END 2020-02-29 12:48 | disposition home or self-care (01) ==
LOC: MW.ED 09:43
DX: R56.9 Unspecified convulsions (principal); Z79.899 Other long term (current) drug therapy
CPT/HCPCS: 36415; 80053; 80305; 80307; 81003; 83605; 83735; 84100; 85025; 93005; 99285; A9270; J7030

== ENCOUNTER 2020-05-29 20:50 | Emergency (ER) | payer BC ==
[2020-05-29] MEDS ORDERED: Sodium Chloride 0.9% 2.5 ML Syringe FLUSH PRN (21:01)
[2020-05-29] MEDS ORDERED: Sodium Chloride 0.9% 10 ML Syringe FLUSH PRN (21:01)
[2020-05-29] MEDS ORDERED: Acetaminophen 325 MG Tab PO ONE (21:27)
--- NOTE | 2020-05-29 21:27 | EDM.PDOC ---
ED HPI GENERAL MEDICAL PROBLEM - General Chief Complaint: Neuro Symptoms/Deficits Stated Complaint: SEIZURE Time Seen by Provider: 05/29/20 21:00 - History of Present Illness INITIAL COMMENTS - FREE TEXT/NARRATIVE: HISTORY AND PHYSICAL: History of present illness: This is a 34-year-old gentleman with a history significant for seizures in the past who presents ER today secondary to witnessed seizure by his prior to arrival. Patient reports that he for started having seizures in 2012. Patient reports that he was seizure-free until 2019 when he has had 3 seizures a year. Patient reports that he is currently being followed by a neurologist for seizures and is supposed to be on Keppra 500 mg twice a day. Patient reports that he is not taking his medication for quite some time until Thursday, 2 days ago, when he took Keppra 500 mg in the morning in the evening. Patient reports on Thursday he did not have any more medication left but had an appointment to see his neurologist. Patient reports that he went to see his neurologist yesterday and obtain refills for his medication. Patient went to the pharmacy and picked up his Keppra prescription but did not take any of his Keppra on Thursday or today. Patient reports that today he was feeling fine in his usual state of health. Patient denies any recent fevers, shakes, chills, nausea, vomiting, diarrhea, dysuria, frequency, urgency, chest pain, shortness of breath. Patient denies any aura or preictal symptoms. Patient denies any loss of bowel or bladder function. Patient currently complains of a headache but denies any sensation of a head injury or trauma or swelling to his scalp. Patient denies any other pain or discomfort to his upper or lower extremities, chest, torso, back, head, neck. Patient denies any tobacco, alcohol, drugs. Patient reports that he has had a nephrectomy in the past but is unclear why he had it. Patient denies any history of cancer. In reviewing his old records, the patient appears to have an MRI back in 2019 which was unremarkable. Review of systems: As per history of present illness and below otherwise all systems reviewed and negative. Past medical history: As per history of present illness and as reviewed below otherwise noncontributory. Surgical history: As per history of present illness and as reviewed below otherwise noncontributory. Social history: No reported history of drug or alcohol abuse. Family history: As per history of present illness and as reviewed below otherwise noncontributory. Physical exam: This patient was seen and evaluated during the 2019 SARS-CoV-2 novel coronavirus pandemic period. Community viral transmission is ongoing at time of this encounter and the emergency department is operating under pandemic response procedures. Constitutional: Patient is oriented to person, place, and time. Appears well- developed and well-nourished. No distress. HEENT: Moist mucous membranes Head: Normocephalic and atraumatic Eyes: Right eye exhibits no discharge. Left eye exhibits no discharge. No scleral icterus Neck: Normal range of motion. No tracheal deviation present. Cardiovascular: Normal rate and regular rhythm. Pulmonary: Effort normal, no respiratory distress. Abdominal: No distention Musculoskeletal: Normal range of motion Neurologic: Alert and oriented to person, place and time. Skin: [place], warm and dry. Psychiatric: Normal mood and affect. Behavior is normal. Judgment and thought content normal. Nursing note and vital signs have been reviewed Patient has no C-spine T-spine or L-spine tenderness to palpation. Patient has no left upper or right upper quadrant tenderness to palpation. Patient has no crepitus to palpation to the anterior chest wall. Patient is neurologically intact. Patient does not present with any signs or or symptoms that would be consistent with acute intracranial, intra-abdominal, intrathoracic, or long bone injury. All long bones have been palpated and range of motion been performed and there is no evidence of any acute pathology. Neuro: A&Ox3. Cranial nerves II-XII grossly intact, 5/5 strength to bilateral upper and lower extremities, sensation intact to bilateral upper and lower extremities, no nystagmus, PERRLA, EOMI, normal speech, proprioception intact to bilateral lower extremities, normal finger to nose test, gait normal Diagnostics: CBC, CMP Therapeutics: NSS x1 L, Keppra 1 g IV. Tylenol 1 g p.o. Assessment and plan: This is a 34-year-old gentleman who presents ER today secondary to a seizure. Patient has a history of seizure disorder in the past and has been noncompliant with his Keppra. Patient did see his neurologist yesterday for scheduled appointment and got his medications refilled. Patient presents the ER today with a bottle that was filled on May 16 (although the patient reports that he picked it up yesterday from the pharmacy) which still has 60 out of 60 pills remaining. Patient reports that the 2 pills that he took on Thursday where the last 2 pills from a prior prescription. Patient is unclear why he did not take any of his medications yesterday or today after having seen the neurologist and having had his prescription picked up. Patient will be monitored here in the ED. We will check a CBC and a CMP. We will give the patient 1 g of IV Keppra to help bolus him. Patient be given Tylenol to assist with his headache. 10:11 PM: Patient was monitored in the ER and is remained stable. Patient has been given 1 g of IV Keppra. Patient's labs are all within normal limits. Patient is stable for discharge at this time. Patient does have his at home who can monitor him. Patient will be instructed as to the importance of taking his Keppra as instructed and to follow-up with his neurologist for reevaluation as needed. Reassessment at the time of disposition demonstrates that the patient is in no acute distress. The patient has remained stable throughout the entire ED visit and is without objective evidence for acute process requiring urgent intervention or hospitalization. The patient is stable for discharge, counseling is provided as documented above, discussed symptomatic treatment and specific conditions for return. I have spoken with the patient/caregiver and discussed todays findings, in addition to providing specific details for the plan of care. Questions are answered and there is agreement with the plan. Definitive disposition and diagnosis as appropriate pending reevaluation and review of above. headache Pain Score (Numeric/FACES): 8 - Related Data Allergies Allergy/AdvReac Type Severity Reaction Status Date / Time No Known Allergies Allergy Verified 05/29/20 20:51 Home Meds: Home Meds Cholecalciferol (Vitamin D3) [Vitamin D3] 50,000 unit PO WEEKLY 02/29/20 [History] levETIRAcetam [Keppra] 750 mg PO BID #60 tablet 02/29/20 [Rx] Past Medical History Gastrointestinal History: Reports: Chronic Constipation Other Gastrointestinal History: Constipation, recent Flu Symptoms Other Genitourinary History: Pt states he has only 1 kidney (right kidney removed) Neurological History: Reports: Seizure, Other (See Below) Other Neuro History: last sx episode 2 months ago - Infectious Disease History Infectious Disease History: Reports: None - Past Surgical History GI Surgical History: Reports: None Male Surgical History: Reports: Nephrectomy Neurological Surgical History: Reports: None Social & Family History - Family History Family Medical History: No Pertinent Family History - Tobacco Use Tobacco Use Status *Q: Never Tobacco User - Caffeine Use Caffeine Use: Reports: None - Recreational Drug Use Recreational Drug Use: No ED ROS GENERAL - Review of Systems Review Of Systems: See Below ED EXAM, GENERAL - Physical Exam Exam: See Below Course - Vital Signs Last Recorded V/S: Last Vital Signs Temp 97.9 F 05/29/20 20:51 Pulse 92 05/29/20 20:51 Resp 20 05/29/20 20:51 BP 129/76 05/29/20 20:51 Pulse Ox 97 05/29/20 20:51 - Orders/Labs/Meds Orders: Active Orders 24 hr Category Date Time Status Sodium Chloride 0.9% [Saline Flush] Med 05/29/20 21:01 Active 10 ml FLUSH ASDIRECTED PRN Sodium Chloride 0.9% [Saline Flush] Med 05/29/20 21:01 Active 2.5 ml FLUSH ASDIRECTED PRN Saline Lock Insert [OM.PC] Stat Oth 05/29/20 21:01 Ordered Medication Orders Sodium Chloride (Sodium Chloride 0.9% 10 Ml Syringe) 10 ml FLUSH ASDIRECTED PRN PRN Reason: Keep Vein Open Last Admin: 05/29/20 21:10 Dose: 10 ml Documented by: LISA Sodium Chloride (Sodium Chloride 0.9% 2.5 Ml Syringe) 2.5 ml FLUSH ASDIRECTED PRN PRN Reason: Keep Vein Open Last Admin: 05/29/20 21:10 Dose: 2.5 ml Documented by: LISA Labs: Laboratory Tests 05/29/20 05/29/20 Range/Units 20:52 20:52 WBC 6.05 (4.0-11.0) K/uL RBC 4.36 L (4.50-5.90) M/uL Hgb 13.5 (13.0-17.0) g/dL Hct 39.6 (38.0-50.0) % MCV 90.8 (80.0-98.0) fL MCH 31.0 (27.0-32.0) pg MCHC 34.1 (31.0-37.0) g/dL RDW Std Deviation 38.9 (28.0-62.0) fl RDW Coeff of Thomas 12 (11.0-15.0) % Plt Count 180 (150-400) K/uL MPV 11.60 (7.40-12.00) fL Neut % (Auto) 41.9 L (48.0-80.0) % Lymph % (Auto) 44.1 H (16.0-40.0) % [place] % (Auto) 8.8 (0.0-15.0) % Eos % (Auto) 5.0 (0.0-7.0) % Baso % (Auto) 0.2 (0.0-1.5) % Neut # (Auto) 2.5 (1.4-5.7) K/uL Lymph # (Auto) 2.7 H (0.6-2.4) K/uL [place] # (Auto) 0.5 (0.0-0.8) K/uL Eos # (Auto) 0.3 (0.0-0.7) K/uL Baso # (Auto) 0.0 (0.0-0.1) K/uL Nucleated RBC % 0.0 /100WBC Nucleated RBCs # 0 K/uL Sodium 136 (136-148) mmol/L Potassium 3.7 (3.5-5.1) mmol/L Chloride 99 (98-107) mmol/L Carbon Dioxide 24.1 (21.0-32.0) mmol/L BUN 16 (7.0-18.0) mg/dL Creatinine 1.6 H (0.8-1.3) mg/dL Est Cr Clr Drug Dosing 69.29 mL/min Estimated GFR (MDRD) 49.7 ml/min Glucose 111 H (74-106) mg/dL Calcium 8.7 (8.5-10.1) mg/dL Total Bilirubin 0.4 (0.2-1.0) mg/dL AST 26 (15-37) IU/L ALT 41 (14-63) IU/L Alkaline Phosphatase 71 (46-116) U/L Total Protein 7.7 (6.4-8.2) g/dL Albumin 3.8 (3.4-5.0) g/dL Globulin 3.9 (2.6-4.0) g/dL Albumin/Globulin Ratio 1.0 (0.9-1.6) Meds: Medications Generic Name Dose Route Start Last Admin Trade Name Freq PRN Reason Stop Dose Admin Sodium Chloride 10 ml 05/29/20 21:01 05/29/20 21:10 Sodium Chloride 0.9% 10 Ml Syringe FLUSH 10 ml ASDIRECTED PRN Administration Keep Vein Open Sodium Chloride 2.5 ml 05/29/20 21:01 05/29/20 21:10 Sodium Chloride 0.9% 2.5 Ml Syringe FLUSH 2.5 ml ASDIRECTED PRN Administration Keep Vein Open Discontinued Medications Generic Name Dose Route Start Last Admin Trade Name Freq PRN Reason Stop Dose Admin Acetaminophen 650 mg 05/29/20 21:27 Acetaminophen 325 Mg Tab PO 05/29/20 21:28 NOW ONE Levetiracetam 1,000 mg/ 110 mls @ 440 mls/hr 05/29/20 21:23 Dextrose/Water IV 05/29/20 21:37 Q12H STA Departure - Departure Time of Disposition: 22:12 Disposition: Home, Self-Care 01 Condition: Good Clinical Impression: Seizure - Discharge Information Instructions: Seizure, Adult Forms: ED Department Discharge Additional Instructions: Your seen and evaluated in the ER today secondary to having a seizure earlier. It is extremely important that you are compliant with taking her Keppra twice a day as instructed. Please make an appointment to see your neurologist in the next 1 to 2 days for reevaluation and reassessment of your medications. Please go home and get plenty of rest. Avoid any excessive exertion, stress, computer use, watching TV. The following information is given to patients seen in the emergency department who are being discharged to home. This information is to outline your options for follow-up care. We provide all patients seen in our emergency department with a follow-up referral. The need for follow-up, as well as the timing and circumstances, are variable depending upon the specifics of your emergency department visit. If you don't have a primary care physician on staff, we will provide you with a referral. We always advise you to contact your personal physician following an emergency department visit to inform them of the circumstance of the visit and for follow-up with them and/or the need for any referrals to a consulting specialist. The emergency department will also refer you to a specialist when appropriate. This referral assures that you have the opportunity for follow-up care with a specialist. All of these measure are taken in an effort to provide you with optimal care, which includes your follow-up. Under all circumstances we always encourage you to contact your private physician who remains a resource for coordinating your care. When calling for follow-up care, please make the office aware that this follow-up is from your recent emergency room visit. If for any reason you are refused follow-up, please contact the [facility] Emergency Department at and asked to speak to the emergency department charge nurse. [facility] [address] [place] [id number] [facility] [address] [place] [id number] Sepsis Event Note (ED) - Evaluation Sepsis Screening Result: No Definite Risk - Focused Exam Vital Signs: Vital Signs Temp Pulse Resp BP Pulse Ox 05/29/20 20:51 97.9 F 92 20 129/76 97 - My Orders Last 24 Hours: My Active Orders 05/29/20 21:01 Sodium Chloride 0.9% [Saline Flush] 10 ml FLUSH ASDIRECTED PRN Sodium Chloride 0.9% [Saline Flush] 2.5 ml FLUSH ASDIRECTED PRN Saline Lock Insert [OM.PC] Stat - Assessment/Plan Last 24 Hours: My Active Orders 05/29/20 21:01 Sodium Chloride 0.9% [Saline Flush] 10 ml FLUSH ASDIRECTED PRN Sodium Chloride 0.9% [Saline Flush] 2.5 ml FLUSH ASDIRECTED PRN Saline Lock Insert [OM.PC] Stat
[2020-05-29 21:36] LABS: CARBON DIOXIDE,CO2 24.1 mmol/L (21.0-32.0); POTASSIUM,K 3.7 mmol/L (3.5-5.1)
[2020-05-29 23:15] VITALS: BP 132/73; PULSE 95
== END 2020-05-29 22:28 | disposition home or self-care (01) ==
LOC: MW.ED 20:50
DX: R56.9 Unspecified convulsions (principal)
CPT/HCPCS: 36415; 80053; 85025; 96374; 99284; A9270; J1953; 99283

== ENCOUNTER 2021-01-26 06:32 | Emergency (ER) | payer BC ==
--- NOTE | 2021-01-26 06:48 | PCM.EKG ---
#1 Interpretation EKG Date: 01/26/21 Time: 06:37 EKG Interpretation Comments: EKG: As interpreted by ER physician: Taylor: Nonspecific ST-T wave abnormalities Normal axis No evidence of ST elevation [place] Normal sinus rhythm heart rate of 92
--- NOTE | 2021-01-26 06:52 | EDM.PDOC ---
<Micha Vazquezd - Last Filed: 01/26/21 06:53> ED HPI GENERAL MEDICAL PROBLEM - General Chief Complaint: General Stated Complaint: SEIZURE Time Seen by Provider: 01/26/21 06:52 - History of Present Illness INITIAL COMMENTS - FREE TEXT/NARRATIVE: HISTORY AND PHYSICAL: History of present illness: This is a 35-year-old gentleman with a history significant for seizure disorder in the past, right nephrectomy in the past for on known reasons, who was brought to the ER today by EMS secondary to a witnessed seizure while at work. Patient denies any history of hypertension, diabetes, liver, lung, cardiac, strokes in the past. Patient denies any recent fevers, shakes, chills, nausea, vomiting, diarrhea, dysuria, frequency, urgency. Patient reports he has been tolerating p.o. solids and liquids well. Patient reports that he was in his usual state of health yesterday and was without complaints. Patient reports that he supposed to be on Keppra however his last dose was approximately 2 months ago secondary to running out of medication. Patient reports his last seizure was approximately 4 to 5 months ago. Patient denies any current headaches, double vision, blurred vision, weakness of his upper or lower extremities. Patient denies any tobacco, alcohol, drugs. Review of systems: As per history of present illness and below otherwise all systems reviewed and negative. Past medical history: As per history of present illness and as reviewed below otherwise noncontributory. Surgical history: As per history of present illness and as reviewed below otherwise noncontributory. Social history: No reported history of drug abuse. Family history: As per history of present illness and as reviewed below otherwise noncontributory. Physical exam: This patient was seen and evaluated during the 2019 SARS-CoV-2 novel coronavirus pandemic period. Community viral transmission is ongoing at time of this encounter and the emergency department is operating under pandemic response procedures. Constitutional: Patient is oriented to person, place, and time. Appears well- developed and well-nourished. No distress. HEENT: Moist mucous membranes Head: Normocephalic and atraumatic Eyes: Right eye exhibits no discharge. Left eye exhibits no discharge. No scleral icterus Neck: Normal range of motion. No tracheal deviation present. Cardiovascular: Normal rate and regular rhythm. Pulmonary: Effort normal, no respiratory distress. Abdominal: No distention Musculoskeletal: Normal range of motion Neurologic: Patient is currently alert awake and oriented x3. Patient is sleepy but easily arousable. Patient does appear to be still slightly postictal but is able to answer questions appropriately. Skin: [place], warm and dry. Psychiatric: Normal mood and affect. Behavior is normal. Judgment and thought content normal. Nursing note and vital signs have been reviewed Diagnostics: CBC, CMP, alcohol level. Therapeutics: Keppra 1 g IV Assessment and plan: 35-year-old gentleman with a history significant for seizure disorder who presents to the ER today with a witnessed seizure at work. Patient is noncompliant with his Keppra. Patient is currently sleepy but easily arousable, and oriented x3. Patient will have basic labs drawn in the ED including a CBC, CMP, alcohol level. Patient will be given a bolus dose of Keppra 1 g IV while in the ED. Patient will likely need a prescription for Keppra if he is discharged home to assist him until he is able to see his family doctor for refills on his medication. Definitive disposition and diagnosis as appropriate pending reevaluation and review of above. Right Shoulder Pain Score (Numeric/FACES): 8 - Related Data Allergies Allergy/AdvReac Type Severity Reaction Status Date / Time No Known Allergies Allergy Verified 01/26/21 06:40 Home Meds: Home Meds Cholecalciferol (Vitamin D3) [Vitamin D3] 50,000 unit PO WEEKLY 02/29/20 [History] levETIRAcetam [Keppra] 750 mg PO BID #60 tablet 02/29/20 [Rx] levETIRAcetam [Keppra] 750 mg PO BID #180 tab 01/26/21 [Rx] Past Medical History HEENT History: Reports: None Cardiovascular History: Reports: None Respiratory History: Reports: None Gastrointestinal History: Reports: Chronic Constipation Other Gastrointestinal History: Constipation, recent Flu Symptoms Other Genitourinary History: Pt states he has only 1 kidney (right kidney removed) Neurological History: Reports: Seizure, Other (See Below) Other Neuro History: last sx episode 2 months ago - Infectious Disease History Infectious Disease History: Reports: None - Past Surgical History HEENT Surgical History: Reports: None Cardiovascular Surgical History: Reports: None GI Surgical History: Reports: None Male Surgical History: Reports: Nephrectomy Neurological Surgical History: Reports: None Social & Family History - Family History Family Medical History: No Pertinent Family History - Tobacco Use Tobacco Use Status *Q: Never Tobacco User - Caffeine Use Caffeine Use: Reports: None - Recreational Drug Use Recreational Drug Use: No ED ROS GENERAL - Review of Systems Review Of Systems: See Below ED EXAM, GENERAL - Physical Exam Exam: See Below Departure - Departure Disposition: Home, Self-Care 01 Clinical Impression: Seizure - Discharge Information Prescriptions: levETIRAcetam [Keppra] 750 mg PO BID #180 tab Instructions: Seizure, Adult, [id number] Referrals: PCP,None [Primary Care Provider] - Forms: ED Department Discharge Additional Instructions: You were evaluated today on an emergent basis. As discussed it is extremely important that you take your Keppra as prescribed. I did provide you with a prescription to be used twice a day. I recommend that you follow-up with neurology for reevaluation and medication management. Please follow-up with neurology within 1 week. Your prescriptions were sent to [facility] pharmacy. [facility] - Neurology [address] [address] The patient is informed of any results of their evaluation and diagnostic workup and all questions are answered. They are given discharge instructions and return precautions. The patient is stable for discharge. The patient states they understand and agree with the plan and that they will return if their symptoms get worse or if they have any new concerns. The following information is given to patients seen in the emergency department who are being discharged to home. This information is to outline your options for follow-up care. We provide all patients seen in our emergency department with a follow-up referral. The need for follow-up, as well as the timing and circumstances, are variable depending upon the specifics of your emergency department visit. If you don't have a primary care physician on staff, we will provide you with a referral. We always advise you to contact your personal physician following an emergency department visit to inform them of the circumstance of the visit and for follow-up with them and/or the need for any referrals to a consulting specialist. The emergency department will also refer you to a specialist when appropriate. This referral assures that you have the opportunity for follow-up care with a specialist. All of these measure are taken in an effort to provide you with optimal care, which includes your follow-up. Under all circumstances we always encourage you to contact your private physician who remains a resource for coordinating your care. When calling for follow-up care, please make the office aware that this follow-up is from your recent emergency room visit. If for any reason you are refused follow-up, please contact the [facility] Emergency Department at and asked to speak to the emergency department charge nurse. <Rodríguez Newell - Last Filed: 01/26/21 10:20> ED HPI GENERAL MEDICAL PROBLEM - History of Present Illness INITIAL COMMENTS - FREE TEXT/NARRATIVE: Patient was signed out to me by Dr. Vazquez pending labs and reevaluation at 7 AM. I promptly performed a detailed physical examination and my examination was done after ED treatments were initiated by the signout provider. Patient has been under the care of previous provider up until this point. Laboratory: CBC is unremarkable. CMP reveals metabolic acidosis with bicarbonate of 20.6, elevated creatinine of 1.6 which is unchanged from prior and glucose of 136 otherwise unremarkable. Some alcohol level is negative. Patient was observed in the emergency department any further episodes of seizing. At this time I did discuss that I provided him with a prescription for his Keppra. I encouraged the patient to continue to use his Keppra as prescribed I discussed that he needs to follow-up with neurology within 1 week. He expressed that he would like a second opinion and is going to [place] for this. I did discuss that although he wants a second opinion I do recommend he continues to take his medications as prescribed. He was amenable to discharge at this time and had no further questions DISPOSITION: The patient was discharged home in stable condition. The patient will follow up with neurology in 1 week CONDITION: Fair PROCEDURES: None FINAL IMPRESSION(S)/DIAGNOSES: 1. Acute breakthrough seizure Rodríguez Newell M.D. Course - Vital Signs Last Recorded V/S: Last Vital Signs Temp 36.3 C 01/26/21 06:40 Pulse 68 01/26/21 09:10 Resp 16 01/26/21 09:10 BP 116/81 01/26/21 09:10 Pulse Ox 98 01/26/21 09:10 - Orders/Labs/Meds Orders: Active Orders 24 hr Category Date Time Status Saline Lock Insert [OM.PC] Stat Oth 01/26/21 06:57 Ordered Labs: Laboratory Tests 01/26/21 01/26/21 Range/Units 06:40 06:40 WBC 6.55 (4.0-11.0) K/uL RBC 4.28 L (4.50-5.90) M/uL Hgb 13.1 (13.0-17.0) g/dL Hct 38.5 (38.0-50.0) % MCV 90.0 (80.0-98.0) fL MCH 30.6 (27.0-32.0) pg MCHC 34.0 (31.0-37.0) g/dL RDW Std Deviation 39.4 (28.0-62.0) fl RDW Coeff of Thomas 12 (11.0-15.0) % Plt Count 205 (150-400) K/uL MPV 11.40 (7.40-12.00) fL Neut % (Auto) 49.6 (48.0-80.0) % Lymph % (Auto) 36.3 (16.0-40.0) % Gregory % (Auto) 9.6 (0.0-15.0) % Eos % (Auto) 4.0 (0.0-7.0) % Baso % (Auto) 0.5 (0.0-1.5) % Neut # (Auto) 3.3 (1.4-5.7) K/uL Lymph # (Auto) 2.4 (0.6-2.4) K/uL Gregory # (Auto) 0.6 (0.0-0.8) K/uL Eos # (Auto) 0.3 (0.0-0.7) K/uL Baso # (Auto) 0.0 (0.0-0.1) K/uL Nucleated RBC % 0.0 /100WBC Nucleated RBCs # 0 K/uL Sodium 136 (136-148) mmol/L Potassium 3.7 (3.5-5.1) mmol/L Chloride 100 (98-107) mmol/L Carbon Dioxide 20.6 L (21.0-32.0) mmol/L BUN 13 (7.0-18.0) mg/dL Creatinine 1.6 H (0.8-1.3) mg/dL Est Cr Clr Drug Dosing 66.54 mL/min Estimated GFR (MDRD) 59.9 ml/min Glucose 136 H (74-106) mg/dL Calcium 8.6 (8.5-10.1) mg/dL Total Bilirubin 0.8 (0.2-1.0) mg/dL AST 18 (15-37) IU/L ALT 21 (14-63) IU/L Alkaline Phosphatase 76 (46-116) U/L Total Protein 7.6 (6.4-8.2) g/dL Albumin 3.6 (3.4-5.0) g/dL Globulin 4.0 (2.6-4.0) g/dL Albumin/Globulin Ratio 0.9 (0.9-1.6) Ethyl Alcohol < 3.0 mg/dL Meds: Medications Discontinued Medications Generic Name Dose Route Start Last Admin Trade Name Freq PRN Reason Stop Dose Admin Levetiracetam 1,000 mg/ 110 mls @ 440 mls/hr 01/26/21 06:58 01/26/21 07:32 Dextrose/Water IV 01/26/21 07:12 440 mls/hr Q12H STA Administration Sodium Chloride 1,000 mls @ 999 mls/hr 01/26/21 06:57 01/26/21 07:12 Normal Saline IV 01/26/21 07:57 999 mls/hr .Bolus ONE Administration Sodium Chloride 10 ml 01/26/21 06:57 01/26/21 07:12 Sodium Chloride 0.9% 10 Ml Syringe FLUSH 10 ml ASDIRECTED PRN Administration Keep Vein Open Sodium Chloride 2.5 ml 01/26/21 06:57 01/26/21 07:12 Sodium Chloride 0.9% 2.5 Ml Syringe FLUSH 2.5 ml ASDIRECTED PRN Administration Keep Vein Open Departure - Departure Time of Disposition: 08:53 Condition: Fair - Discharge Information *PRESCRIPTION DRUG MONITORING PROGRAM REVIEWED*: No *COPY OF PRESCRIPTION DRUG MONITORING REPORT IN PATIENT SHAILESH: No Sepsis Event Note (ED) - Focused Exam Vital Signs: Vital Signs Temp Pulse Resp BP Pulse Ox 01/26/21 09:10 68 16 116/81 98 01/26/21 08:50 75 16 112/65 100 01/26/21 07:56 58 L 16 111/64 100 01/26/21 07:13 79 16 125/78 100 01/26/21 06:40 36.3 C 94 18 129/78 98
[2021-01-26] MEDS ORDERED: Sodium Chloride 0.9% 1,000 ML IV ONE (06:57)
[2021-01-26] MEDS ORDERED: Sodium Chloride 0.9% 2.5 ML Syringe FLUSH PRN (06:57)
[2021-01-26] MEDS ORDERED: Sodium Chloride 0.9% 10 ML Syringe FLUSH PRN (06:57)
[2021-01-26 07:12] LABS: BLOOD UREA NITROGEN,BUN 13 mg/dL (7.0-18.0); CARBON DIOXIDE,CO2 20.6 mmol/L (21.0-32.0); CHLORIDE,CL 100 mmol/L (98-107); GLUCOSE RANDOM 136 mg/dL (74-106); POTASSIUM,K 3.7 mmol/L (3.5-5.1); SODIUM,NA 136 mmol/L (136-148)
[2021-01-26 09:10] VITALS: BP 116/81; PULSE 68
== END 2021-01-26 09:21 | disposition home or self-care (01) ==
LOC: MW.ED 06:32
DX: R56.9 Unspecified convulsions (principal); Z79.899 Other long term (current) drug therapy
CPT/HCPCS: 36415; 80053; 80307; 85025; 93005; 96374; 99284; J1953; J7030

== ENCOUNTER 2024-05-05 17:04 | Emergency (ER) | payer SELFPAY ==
[2024-05-05 17:13] VITALS: BP 125/85; PULSE 76
[2024-05-05] MEDS: Ibuprofen 600 MG Tab PO ONE (17:22)
== END 2024-05-05 18:03 | disposition home or self-care (01) ==
LOC: MW.ED 17:04
DX: R51.9 Headache, unspecified (principal); Z75.8 Other problems related to medical facilities and other health care; V47.6XXA Car passenger injured in collision with fixed or stationary object in traffic accident, initial encounter
CPT/HCPCS: 99283; A9270